=== PATIENT | male | born 1980 | race Caucasian/White ===

== ENCOUNTER 2020-05-27 18:07 | Emergency (ER) | payer SELFPAY ==
--- NOTE | 2020-05-27 19:00 | NUR ---
unable to locate patient. called patient 2x in lobby and tent.
--- NOTE | 2020-05-27 19:22 | NUR ---
pt left without being seen
== END 2020-05-27 19:00 | disposition left against medical advice (07) ==
LOC: MED 18:07
DX: Z53.21 Procedure and treatment not carried out due to patient leaving prior to being seen by health care provider (principal)

== ENCOUNTER 2020-08-03 21:17 | Emergency (ER) | payer MEDICAID ==
[~2020-08-03] VITALS: Ht 167.6 cm; Wt 69.4 kg
[2020-08-03 21:31] VITALS: BP 144/95
--- NOTE | 2020-08-03 21:42 | NUR ---
PT AMBULATED TO BED #9
--- NOTE | 2020-08-03 22:03 | NUR ---
[employer]PRE[employer] USED FOR TRANSLATION OF [facility] RE[facility]. GROUP TEACHER PABLITO WITH ID #:[id number]
--- NOTE | 2020-08-03 22:05 | NUR ---
DR ASTUDILLO AT BEDSIDE EXAMINING PT
--- NOTE | 2020-08-03 22:05 | NUR ---
40 Y/O MALE C/O ABD PAIN WORSE AFTER EATING X1 WEEK, DURING DAYTIME. DENIES N/V/D. DENIES PAIN AT THIS TIME. MEDHX: PALPITATIONS, ANXIETY NKA
--- NOTE | 2020-08-03 22:10 | NUR ---
DR ASTUDILLO AT BEDSIDE PERFORMING ULTRASOUND
[2020-08-03] MEDS ORDERED: PANT40EC PO (22:35)
[2020-08-03 22:46] VITALS: BP 144/95
--- NOTE | 2020-08-03 22:46 | NUR ---
Patient discharged with v/s stable. Written and verbal after care instructions given and explained. Patient alert, oriented and verbalized understanding of instructions. Ambulatory with steady gait. All questions addressed prior to discharge. ID band removed. Patient advised to follow up with PMD. Rx of PROTONIX given. Patient educated on indication of medication including possible reaction and side effects. Opportunity to ask questions provided and answered.
== END 2020-08-03 22:46 | disposition home or self-care (01) ==
LOC: MED 21:17
DX: R10.9 Unspecified abdominal pain (principal); F41.1 Generalized anxiety disorder; R00.2 Palpitations
CPT/HCPCS: 99284

== ENCOUNTER 2020-08-16 12:21 | Emergency (ER) | payer MEDICAID ==
[~2020-08-16] VITALS: Ht 170.2 cm; Wt 68.0 kg
[~2020-08-16 12:21] MED LIST: PANT40EC PO
[2020-08-16 12:26] VITALS: BP 144/97
--- NOTE | 2020-08-16 12:50 | NUR ---
40 Y/O MALE C/O CHEST PAIN, SUDDEN ONSET THIS MORNING 1130 WHILE LIFTING HEAVY OBJECTS. PT RATES PAIN 7/10 AND DESCRIBES IT SHARP AND PRESSURE LIKE. PAIN IS NONRADIATING AND PT DENIES TAKING ANYTHING FOR PAIN. PT DENIES N/V/SOB/COUGH/FEVER. PT IS A/O X4 WITH EVEN AND UNLABORED RESPIRATIONS. PT IS LAYING IN BED, WITH BED IN LOWEST POSITION, BRAKES LOCKED, X1 SIDERAIL UP. PT CONNECTED TO CUSTOMER ACCOUNTS ADVISOR. CHINESE SPEAKING NO PMH NKDA
--- NOTE | 2020-08-16 14:05 | NUR ---
DR REEDER AT BEDSIDE.
[2020-08-16] MEDS ORDERED: IBUP-2213 PO (14:10)
[2020-08-16 14:20] VITALS: BP 144/97
== END 2020-08-16 14:21 | disposition home or self-care (01) ==
LOC: MED 12:21
DX: R07.89 Other chest pain (principal); Z79.899 Other long term (current) drug therapy
CPT/HCPCS: 93005; 99283

== ENCOUNTER 2020-10-20 15:04 | Emergency (ER) | payer MEDICAID ==
[~2020-10-20] VITALS: Ht 154.9 cm; Wt 29.2 kg
[~2020-10-20 15:04] MED LIST changes: +IBUP-2213 PO
[2020-10-20 15:14] VITALS: BP 134/87
[2020-10-20] MEDS ORDERED: ALUMINUM HYD/MAG/SIMETHICONE 30 ML UDC PO ONE (15:45)
--- NOTE | 2020-10-20 16:23 | NUR ---
PT SENT TO LOBBY TO WAIT.
--- NOTE | 2020-10-20 16:23 | NUR ---
PT IS REFUSING LAB WORK AT THIS TIME. PT STATES "I WANT AN ULTRASOUND DONE. I DON'T NEED BLOOD WORK I'VE ALREADY HAD IT DONE." DR. JONES MADE AWARE.
[2020-10-20 18:41] LABS: BARBITURATE, URINE NEGATIVE ng/ml (NEG <=200); BENZODIAZEPINE, URINE NEGATIVE ng/mL (NEG <=200); CANNABINOID, URINE NEGATIVE ng/mL (NEG <=50); COCAINE, URINE NEGATIVE ng/mL (NEG <=300); OPIATE, URINE NEGATIVE ng/mL (NEG <=2000); PHENCYCLIDINE SCREEN,URINE NEGATIVE ng/mL (NEG <=25)
[2020-10-20 19:11] VITALS: BP 134/87
--- NOTE | 2020-10-20 19:12 | NUR ---
Patient discharged with v/s stable. Written and verbal after care instructions given and explained. Patient verbalized understanding. Ambulatory with steady gait. All questions addressed prior to discharge. Advised to follow up with PMD.
== END 2020-10-20 19:12 | disposition home or self-care (01) ==
LOC: MED 15:04
DX: K76.89 Other specified diseases of liver (principal)
CPT/HCPCS: 76705; 80305; 93005; 99285

== ENCOUNTER 2020-11-07 15:42 | Emergency (ER) | payer MEDICAID ==
[~2020-11-07] VITALS: Ht 163.8 cm; Wt 68.9 kg
[2020-11-07 16:32] VITALS: BP 126/81
--- NOTE | 2020-11-07 16:43 | NUR ---
PATIENT AMBULATED TO ER BED 03
--- NOTE | 2020-11-07 16:46 | NUR ---
40 Y/O MALE C/O LUQ ABD PAIN WITH DIZZINESS X 4 DAYS. REPORTS NAUSEA AND 6/10 "PINCHING" PAIN. ABD SOFT NON TENDER. ACTIVE BOWEL SOUNDS. VSS. PATIENT POSITIONED FOR COMFORT. MEDHX: DENIES NKA
--- NOTE | 2020-11-07 17:19 | NUR ---
DR ASTUDILLO AT BEDSIDE EXAMINING PT
--- NOTE | 2020-11-07 17:45 | NUR ---
LAB AT BEDSIDE
--- NOTE | 2020-11-07 18:10 | NUR ---
URINE SAMPLED DROPPED OFF AT LAB WITH ANA DÍAZ
[2020-11-07 18:20] LABS: BASOPHILS # (AUTO) 0.1 K/uL (0.00-0.22); BASOPHILS % (AUTO) 1.2 % (0.0-2.0); EOSINOPHILS # (AUTO) 0.1 K/uL (0-0.4); EOSINOPHILS % (AUTO) 1.2 % (0.0-4.0); HEMATOCRIT 47.1 % (36-52); LYMPHOCYTES # (AUTO) 1.7 K/uL (2.0-11.5); LYMPHOCYTES % (AUTO) 26.5 % (20.5-51.1); MEAN CORPUSCULAR HEMOGLOBIN 30 pg (27-31); MEAN CORPUSCULAR HGB CONC 34 g/dL (33-37); MEAN CORPUSCULAR VOLUME 87.1 fL (80-94); MONOCYTES # (AUTO) 0.5 K/uL (0.8-1.0); MONOCYTES % (AUTO) 7.6 % (1.7-9.3); NEUTROPHILS # (AUTO) 4.1 K/uL (1.8-7.7); NEUTROPHILS % (AUTO) 63.5 % (42.2-75.2); PLATELET COUNT (AUTO) 267 K/uL (140-450); RED CELL DISTRIBUTION WIDTH 12.9 % (11.6-13.7); WHITE BLOOD COUNT (AUTO) 6.5 K/uL (4.8-10.8)
[2020-11-07 18:22] LABS: APPEARANCE,URINE CLEAR (CLEAR); BILIRUBIN,URINE NEGATIVE (NEGATIVE); BLOOD, URINE NEGATIVE (NEGATIVE); COLOR,URINE YELLOW (YELLOW); LEUKOCYTE ESTERASE ,URINE NEGATIVE (NEGATIVE); NITRITE, URINE NEGATIVE (NEGATIVE); UGLUCOSE NEGATIVE (NEGATIVE)
[2020-11-07 18:29] LABS: ANION GAP 15.6 (8-16); CARBON DIOXIDE 24.1 mmol/L (21-32); CREATININE 0.9 mg/dL (0.6-1.3); POTASSIUM 3.7 mmol/L (3.5-5.1)
[2020-11-07 18:35] LABS: ALBUMIN 3.9 g/dL (3.4-5.0); TOTAL BILIRUBIN 0.6 mg/dL (0.0-1.0)
[2020-11-07] MEDS ORDERED: PANT40EC PO (19:04)
[2020-11-07 19:15] VITALS: BP 146/80
== END 2020-11-07 19:15 | disposition home or self-care (01) ==
LOC: MED 15:42
DX: N20.0 Calculus of kidney (principal); Z79.899 Other long term (current) drug therapy
CPT/HCPCS: 36415; 80053; 81003; 83690; 85025; 99284

== ENCOUNTER 2020-12-04 07:45 | Emergency (ER) | payer MEDICAID ==
[~2020-12-04] VITALS: Ht 154.9 cm; Wt 68.5 kg
[2020-12-04 07:57] VITALS: BP 151/95
--- NOTE | 2020-12-04 08:04 | NUR ---
Patient ambulated to bed 03 with steady/even gait.
--- NOTE | 2020-12-04 08:12 | NUR ---
40 y/o M BIB from home with c/c generalized abdominal pain. Patient A&Ox4, ambulatory, reports seen here in October for kidney stones. Patient reports generalized abdominal pain, 4/10, poking/intermittent, radiating to left side of chest. Patient also reports nausea, acid reflux and dizziness. Patient states symptoms began today after he had a bowel movement. Patient reports Excedrin PO for a headache prior to symptoms beginning without relief. Patient placed in a gown and onto pvc monitor. Abd non-tender/soft/round. VSS; RR even/unlabored, lung sounds CTA. Last BM: AM today normal/semi-formed/brown. Bowel sounds normoactive x 4 quadrants. Bed locked in lowest position, side rails x 1, call light in reach. Family at bedside with patient. PMH/Sx/Meds: Denies NKA
--- NOTE | 2020-12-04 08:12 | NUR ---
Dr. Cabrera is evaluating patient at bedside.
[2020-12-04] MEDS ORDERED: ONDA-24 PO (08:22)
[2020-12-04 08:30] VITALS: BP 151/95
== END 2020-12-04 08:30 | disposition home or self-care (01) ==
LOC: MED 07:45
DX: K29.70 Gastritis, unspecified, without bleeding (principal); R42 Dizziness and giddiness; R11.0 Nausea; Z79.899 Other long term (current) drug therapy
CPT/HCPCS: 99283

== ENCOUNTER 2021-02-23 08:15 | Emergency (ER) | payer MEDICAID ==
[~2021-02-23] VITALS: Ht 157.5 cm; Wt 65.3 kg
[~2021-02-23 08:15] MED LIST changes: +ONDA-24 PO
[2021-02-23 08:20] VITALS: BP 151/90
--- NOTE | 2021-02-23 08:26 | NUR ---
Pt ambulated to bed 02.
--- NOTE | 2021-02-23 08:44 | NUR ---
MD UGALDE AT BEDSIDE EVALUATING PT.
[2021-02-23] MEDS ORDERED: DICYCLOMINE HCL LIQUID 20 MG, ALUMINUM HYD/MAG/SIMETHICONE 30 ML, LIDOCAINE VISCOUS 2% ... PO ONE ×3 (08:50)
--- NOTE | 2021-02-23 08:50 | NUR ---
40 Y MALE WITH C/O 6/10 LUQ EPIGASTRIC PAIN X 3 DAYS. PT ALSO HAS C/O "RAPID HEART RATE." HEART RATE 76 AT THIS TIME. PT STATED "SOMETHING IS WRONG IN HIS CHEST AND STOMACH." DENIES CP, SOB, N/V/D, FEVER, CHILLS. BS ACTIVE X4, SOFT, FLAT, NONTENDER TO TOUCH. PATIENT IS A&OX4, VSS, PLACED IN GOWN AND ON MONITOR FOR CONT OBS. PMH: DENIES NKA
--- NOTE | 2021-02-23 08:58 | NUR ---
PER ERMD 12 LEAD WAS DONE ON PT AND CAME BACK NSR AT 71 HR.
[2021-02-23] MEDS ORDERED: ALUMINUM HYD/MAG/SIMETHICONE 30 ML UDC ONE (08:59)
[2021-02-23] MEDS ORDERED: DICYCLOMINE HCL LIQUID 10 MG/5 ML UDC ONE (08:59)
--- NOTE | 2021-02-23 09:02 | NUR ---
RAD AT BEDSIDE FOR XRAY
--- NOTE | 2021-02-23 09:30 | NUR ---
BLOOD SAMPLES COLLECTED AND WALKED TO LAB.
[2021-02-23 09:52] LABS: APPEARANCE,URINE CLEAR (CLEAR); BILIRUBIN,URINE NEGATIVE (NEGATIVE); BLOOD, URINE NEGATIVE (NEGATIVE); COLOR,URINE YELLOW (YELLOW); LEUKOCYTE ESTERASE ,URINE NEGATIVE (NEGATIVE); NITRITE, URINE NEGATIVE (NEGATIVE); PH,URINE 7.5 (5.0-9.0); UGLUCOSE NEGATIVE (NEGATIVE)
[2021-02-23 09:58] LABS: BASOPHILS # (AUTO) 0.1 K/uL (0.00-0.22); BASOPHILS % (AUTO) 1.2 % (0.0-2.0); EOSINOPHILS % (AUTO) 0.3 % (0.0-4.0); HEMATOCRIT 49.7 % (36-52); HEMOGLOBIN 17.1 g/dL (12.0-18.0); LYMPHOCYTES # (AUTO) 1.3 K/uL (2.0-11.5); LYMPHOCYTES % (AUTO) 19.9 % (20.5-51.1); MEAN CORPUSCULAR HEMOGLOBIN 31 pg (27-31); MEAN CORPUSCULAR HGB CONC 34 g/dL (33-37); MEAN CORPUSCULAR VOLUME 88.7 fL (80-94); MONOCYTES # (AUTO) 0.4 K/uL (0.8-1.0); MONOCYTES % (AUTO) 6.7 % (1.7-9.3); NEUTROPHILS # (AUTO) 4.8 K/uL (1.8-7.7); NEUTROPHILS % (AUTO) 71.9 % (42.2-75.2); PLATELET COUNT (AUTO) 294 K/uL (140-450); RED CELL DISTRIBUTION WIDTH 12.7 % (11.6-13.7); WHITE BLOOD COUNT (AUTO) 6.6 K/uL (4.8-10.8)
[2021-02-23 10:01] LABS: ALBUMIN 4.2 g/dL (3.4-5.0); ANION GAP 13.9 (8-16); CARBON DIOXIDE 26.9 mmol/L (21-32); CREATININE 0.9 mg/dL (0.6-1.3); POTASSIUM 3.8 mmol/L (3.5-5.1); TOTAL BILIRUBIN 0.5 mg/dL (0.0-1.0)
--- NOTE | 2021-02-23 11:20 | NUR ---
MD UGALDE AT BEDSIDE SPEAKING WITH PATIENT.
[2021-02-23 11:30] VITALS: BP 114/75
== END 2021-02-23 11:30 | disposition home or self-care (01) ==
LOC: MED 08:15
DX: R10.9 Unspecified abdominal pain (principal); R00.2 Palpitations
CPT/HCPCS: 36415; 71045; 80053; 81003; 83690; 84484; 85025; 93005; 99285; Q0092

== ENCOUNTER 2022-01-18 15:23 | Emergency (ER) | payer MEDICAID ==
[~2022-01-18] VITALS: Ht 154.9 cm; Wt 67.6 kg
[~2022-01-18 15:23] MED LIST changes: +ONDA-188 PO; -ONDA-24 PO
[2022-01-18 15:54] VITALS: BP 130/82
[2022-01-18] MEDS ORDERED: DICYCLOMINE HCL LIQUID 20 MG, ALUMINUM HYD/MAG/SIMETHICONE 30 ML, LIDOCAINE VISCOUS 2% ... PO ONE ×3 (16:10)
--- NOTE | 2022-01-18 16:30 | NUR ---
c/o epigastric pain x 3 days, comes before and after eating, burning sensation. Took omeprazole with no relief. pmh: denies
[2022-01-18] MEDS ORDERED: DICYCLOMINE HCL LIQUID 10 MG/5 ML UDC ONE (16:35)
[2022-01-18] MEDS ORDERED: ALUMINUM HYD/MAG/SIMETHICONE 30 ML UDC ONE (16:35)
[2022-01-18] MEDS ORDERED: OMEP40EC24 PO (17:10)
[2022-01-18 17:17] VITALS: BP 130/82
--- NOTE | 2022-01-18 17:18 | NUR ---
Patient discharged with v/s stable. Written and verbal after care instructions given and explained. Patient alert, oriented and verbalized understanding of instructions. Ambulatory with steady gait. All questions addressed prior to discharge. ID band removed. Patient advised to follow up with PMD. Rx of OMEPRAZOLE given. Patient educated on indication of medication including possible reaction and side effects. Opportunity to ask questions provided and answered.
== END 2022-01-18 17:18 | disposition home or self-care (01) ==
LOC: MED 15:23
DX: R10.13 Epigastric pain (principal); Z79.899 Other long term (current) drug therapy
CPT/HCPCS: 99283

== ENCOUNTER 2022-10-06 06:17 | Emergency (ER) | payer MEDICAID ==
[~2022-10-06] VITALS: Ht 157.5 cm; Wt 70.3 kg
[~2022-10-06 06:17] MED LIST changes: +OMEP40EC24 PO
[2022-10-06 06:30] VITALS: BP 125/75
--- NOTE | 2022-10-06 06:30 | NUR ---
ERMD evaluating patient at this time
[2022-10-06 06:48] VITALS: BP 125/75
--- NOTE | 2022-10-06 06:48 | NUR ---
Patient discharged with v/s stable. Written and verbal after care instructions given and explained. Patient verbalized understanding. Ambulatory with to car. All questions addressed prior to discharge. Advised to follow up with PMD.
--- NOTE | 2022-10-06 06:48 | NUR ---
Seen and evaluated by VIANNEY
== END 2022-10-06 06:48 | disposition home or self-care (01) ==
LOC: MED 06:17
DX: S81.831A Puncture wound without foreign body, right lower leg, initial encounter (principal); Z79.899 Other long term (current) drug therapy; W54.0XXA Bitten by dog, initial encounter; Y93.89 Activity, other specified; Y92.89 Other specified places as the place of occurrence of the external cause; Y99.8 Other external cause status
CPT/HCPCS: 99281

== ENCOUNTER 2023-03-06 17:14 | Emergency (ER) | payer MEDICAID ==
[~2023-03-06] VITALS: Ht 157.5 cm; Wt 69.9 kg
[2023-03-06 17:35] VITALS: BP 123/72; PULSE 68; RESP 20; TEMP 98.5; O2SAT 99
[2023-03-06] MEDS ORDERED: IBUPROFEN 600 MG TAB PO ONE (18:15)
[2023-03-06] MEDS ORDERED: CYCL-711 PO (18:30)
[2023-03-06] MEDS ORDERED: LID5T TP (18:30)
[2023-03-06] MEDS ORDERED: NAPR-54 PO (18:30)
[2023-03-06 20:00] VITALS: BP 123/72; PULSE 68; RESP 20; TEMP 98.5; O2SAT 99
== END 2023-03-06 20:00 | disposition home or self-care (01) ==
LOC: MED 17:14
DX: M54.2 Cervicalgia (principal); M54.50 Low back pain, unspecified; Z79.899 Other long term (current) drug therapy
CPT/HCPCS: 72050; 72110; 99284